=== PATIENT | male | born 1945 | race Two or more races ===

== ENCOUNTER → 2022-12-19 | Outpatient (CLI) | payer OTHER ==
[~2022-12-19] VITALS: Ht 177.8 cm; Wt 78.9 kg
[~2022-12-19] MED LIST: ADENOSINE 66 MG in GIVE UN-DILUTED 0 ML IV STA
[2022-12-19 09:52] VITALS: BP 136/75
== END | disposition home or self-care (01) ==
LOC: XYW 08:59
PROVIDERS: ATTEND Specialist
DX: I25.10 Atherosclerotic heart disease of native coronary artery without angina pectoris (principal); R07.9 Chest pain, unspecified
CPT/HCPCS: 78452; 93017; A9500; J0153